=== PATIENT | female | born 1955 | race African-American/Black ===

== ENCOUNTER 2017-04-24 10:59 | Emergency (ER) | payer SELFPAY ==
[~2017-04-24] VITALS: Ht 160 cm; Wt 55.0 kg
[2017-04-24] MEDS ORDERED: BUPR100T6 PO (11:04)
[2017-04-24] MEDS ORDERED: RISP0.2514 PO (11:04)
[2017-04-24 13:08] LABS: BASOPHILS % 0.5 % (0.0-2.0); HEMATOCRIT. 38.6 % (36.0-48.0); HEMOGLOBIN. 13.2 g/dL (12.0-16.0); LYMPHOCYTES % 29.7 % (20.0-50.0); MEAN CORPUSCULAR HEMOGLOBIN 31.6 pg (28.0-32.0); MEAN CORPUSCULAR VOLUME 92.6 fL (81.0-99.0); MEAN PLATELET VOLUME 6.5 fl (7.4-10.4); MONOCYTES % 7.6 % (2.0-8.0); NEUTROPHILS % 59.2 % (40.0-76.0); PLATELET 240 x1000/uL (130-400); RED BLOOD CELL COUNT 4.17 mill/uL (4.2-5.4); RED CELL DISTRIBUTION WIDTH 15.6 % (11.6-14.6)
[2017-04-24 13:22] LABS: CARBON DIOXIDE 29 mEq/L (21-32); CHLORIDE 105 mEq/L (98-107); ETHANOL BLOOD < 10 mg/dL
[2017-04-24 13:37] LABS: CLARITY URINE CLEAR (CLEAR); COLOR URINE YELLOW (YELLOW); GLUCOSE URINE NEGATIVE (NEGATIVE); KETONES URINE NEGATIVE (NEGATIVE); LEUKOCYTE ESTERASE URINE TRACE (NEGATIVE); NITRITE URINE NEGATIVE (NEGATIVE); OCCULT BLOOD URINE NEGATIVE (NEGATIVE); PH URINE 5.5 (4.5-8.0); PROTEIN URINE NEGATIVE (NEGATIVE); SPECIFIC GRAVITY URINE 1.014 (1.005-1.030); UROBILINOGEN URINE 0.2 E.U./dL (0.2-1.0)
[2017-04-24 14:09] LABS: *AMPHETAMINES SCREEN URINE NEGATIVE (NEGATIVE); *BARBITURATES SCREEN URINE NEGATIVE (NEGATIVE); *BENZODIAZEPINES SCREEN URINE NEGATIVE (NEGATIVE); *COCAINE SCREEN URINE NEGATIVE (NEGATIVE); CANNABINOID URINE SCREEN NEGATIVE (NEGATIVE); METHADONE URINE SCREEN NEGATIVE (NEGATIVE); OPIATES URINE SCREEN NEGATIVE (NEGATIVE); PHENCYCLIDINE URINE SCREEN NEGATIVE (NEGATIVE)
[2017-04-25 14:08] VITALS: BP 114/66
== END 2017-04-25 17:02 | disposition home or self-care (01) ==
LOC: ER 12:05
DX: F20.9 Schizophrenia, unspecified (principal); R45.851 Suicidal ideations; Z88.8 Allergy status to other drugs, medicaments and biological substances
CPT/HCPCS: 36415; 80048; 80305; 80307; 80329; 81001; 85025; 99284; G0482; Z7610

== ENCOUNTER 2019-06-05 12:22 | Inpatient (IN) | payer MEDICAID ==
[~2019-06-05] VITALS: Ht 154.9 cm; Wt 37.4 kg
[~2019-06-05 12:22] MED LIST: BUPR100T6 PO; RISP0.2514 PO
[2019-06-05 13:58] LABS: BASOPHILS % 0.6 % (0.0-2.0); EOSINOPHILS % 3.1 % (0.0-5.0); HEMATOCRIT. 35.6 % (36.0-48.0); HEMOGLOBIN. 11.9 g/dL (12.0-16.0); LYMPHOCYTES % 15.1 % (20.0-50.0); MEAN CORPUSCULAR HEMOGLOBIN 31.2 pg (28.0-32.0); MEAN CORPUSCULAR VOLUME 93.2 fL (81.0-99.0); MEAN PLATELET VOLUME 6.4 fl (7.4-10.4); MONOCYTES % 5.6 % (2.0-8.0); NEUTROPHILS % 75.6 % (40.0-76.0); PLATELET 249 x1000/uL (130-400); RED BLOOD CELL COUNT 3.82 mill/uL (4.2-5.4); RED CELL DISTRIBUTION WIDTH 15.7 % (11.6-14.6)
[2019-06-05 14:03] LABS: CHLORIDE 110 mEq/L (98-107)
[2019-06-05 16:50] VITALS: BP 118/51
[2019-06-05 20:00] VITALS: BP 102/41
[2019-06-05 20:05] VITALS: BP 96/50
[2019-06-05 20:12] VITALS: BP 104/43
[2019-06-06] VITALS: BP 99/43
[2019-06-06 04:00] VITALS: BP 92/44
[2019-06-06 08:53] VITALS: BP 109/37
[2019-06-06] MEDS: ENOXAPARIN 30MG/0.3ML SYR SUBCUT SCH (09:00)
[2019-06-06] MEDS ORDERED: ENOXAPARIN 40MG/0.4ML SYR SUBCUT SCH (09:00)
[2019-06-06 12:48] VITALS: BP 101/31
[2019-06-06 16:00] VITALS: BP 147/67
[2019-06-06 16:37] VITALS: BP 103/27
[2019-06-06] MEDS ORDERED: FAMO20TA8 PO (20:38)
[2019-06-06] MEDS ORDERED: QUET50TA PO (20:38)
[2019-06-06] MEDS ORDERED: FAMOTIDINE(NEO) 1MG/ML SUSP PO SCH (20:45)
[2019-06-06] MEDS ORDERED: HALOPERIDOL LACTATE 5MG/ML VIAL IM SCH (21:45)
[2019-06-06] MEDS: FAMOTIDINE 20MG TABLET PO SCH (22:01)
[2019-06-06] MEDS: QUETIAPINE FUMARATE 25MG TABLET PO SCH (22:01)
[2019-06-07 03:54] VITALS: BP 127/83
[2019-06-07 08:00] VITALS: BP 112/58
[2019-06-07] MEDS: ENOXAPARIN 30MG/0.3ML SYR SUBCUT SCH ×2 (09:00→16:37)
[2019-06-07] MEDS: QUETIAPINE FUMARATE 25MG TABLET PO SCH ×2 (09:11→21:00)
[2019-06-07 12:00] VITALS: BP 110/48
[2019-06-07 16:00] VITALS: BP 129/51
[2019-06-07 18:13] LABS: BASOPHILS % 0.4 % (0.0-2.0); EOSINOPHILS % 4.7 % (0.0-5.0); HEMATOCRIT. 33.7 % (36.0-48.0); HEMOGLOBIN. 11.3 g/dL (12.0-16.0); LYMPHOCYTES % 34.4 % (20.0-50.0); MEAN CORPUSCULAR HEMOGLOBIN 31.1 pg (28.0-32.0); MEAN CORPUSCULAR VOLUME 92.3 fL (81.0-99.0); MEAN PLATELET VOLUME 6.4 fl (7.4-10.4); MONOCYTES % 11.6 % (2.0-8.0); NEUTROPHILS % 48.9 % (40.0-76.0); PLATELET 257 x1000/uL (130-400); RED BLOOD CELL COUNT 3.65 mill/uL (4.2-5.4); RED CELL DISTRIBUTION WIDTH 15.6 % (11.6-14.6)
[2019-06-07 18:28] LABS: CHLORIDE 108 mEq/L (98-107)
[2019-06-07 18:33] LABS: PHOSPHORUS 3.8 mg/dL (2.5-4.9)
[2019-06-07 20:39] VITALS: BP 135/49
[2019-06-07] MEDS: FAMOTIDINE 20MG TABLET PO SCH (21:00)
[2019-06-07] MEDS: HALOPERIDOL LACTATE 5MG/ML VIAL IM PRN (22:33)
[2019-06-08] VITALS: BP 133/52
[2019-06-08 04:00] VITALS: BP 115/47
[2019-06-08 08:00] VITALS: BP 125/62
[2019-06-08] MEDS: QUETIAPINE FUMARATE 25MG TABLET PO SCH ×2 (09:55→21:00)
[2019-06-08 12:00] VITALS: BP 111/57
[2019-06-08] MEDS: ASPIRIN 81MG TABLET PO SCH (12:00)
[2019-06-08 20:00] VITALS: BP 131/71
[2019-06-08] MEDS: FAMOTIDINE 20MG TABLET PO SCH (21:00)
[2019-06-08] MEDS: ATORVASTATIN CALCIUM 40MG TABLET PO SCH (21:00)
[2019-06-09] MEDS: HALOPERIDOL LACTATE 5MG/ML VIAL IM PRN (06:39)
[2019-06-09 08:04] VITALS: BP 119/60
[2019-06-09] MEDS: ASPIRIN 81MG TABLET PO SCH (09:00)
[2019-06-09] MEDS: ENOXAPARIN 30MG/0.3ML SYR SUBCUT SCH (09:00)
[2019-06-09] MEDS: QUETIAPINE FUMARATE 25MG TABLET PO SCH ×2 (10:54→21:47)
[2019-06-09 20:00] VITALS: BP 120/83
[2019-06-09] MEDS: ATORVASTATIN CALCIUM 40MG TABLET PO SCH ×2 (21:00→21:47)
[2019-06-09] MEDS: FAMOTIDINE 20MG TABLET PO SCH ×2 (21:00→21:47)
[2019-06-10] VITALS: BP 99/50
[2019-06-10 04:00] VITALS: BP 119/50
[2019-06-10 08:00] VITALS: BP 116/62
[2019-06-10] MEDS: ENOXAPARIN 30MG/0.3ML SYR SUBCUT SCH (09:00)
[2019-06-10] MEDS: ASPIRIN 81MG TABLET PO SCH (09:00)
[2019-06-10] MEDS: QUETIAPINE FUMARATE 25MG TABLET PO SCH ×2 (09:38→21:00)
[2019-06-10] MEDS: ATORVASTATIN CALCIUM 40MG TABLET PO SCH (21:00)
[2019-06-10] MEDS: FAMOTIDINE 20MG TABLET PO SCH (21:00)
[2019-06-11 08:00] VITALS: BP 111/44
[2019-06-11] MEDS: QUETIAPINE FUMARATE 25MG TABLET PO SCH (08:41)
[2019-06-11] MEDS: ENOXAPARIN 30MG/0.3ML SYR SUBCUT SCH (08:42)
[2019-06-11] MEDS: ASPIRIN 81MG TABLET PO SCH (08:42)
[2019-06-11 16:44] VITALS: BP 111/44
== END 2019-06-11 17:03 | disposition home or self-care (01) | DRG 46 ==
LOC: ER 14:36 → 6WST 14:39 → ENRESERV 16:03 → 6EST 06-09 11:32
PROVIDERS: ADMIT Family Medicine; ATTEND Family Medicine
DX: I65.21 Occlusion and stenosis of right carotid artery (principal); R64 Cachexia; F20.9 Schizophrenia, unspecified; R32 Unspecified urinary incontinence; E78.5 Hyperlipidemia, unspecified; I10 Essential (primary) hypertension; Z91.14 Patient's other noncompliance with medication regimen; Z88.8 Allergy status to other drugs, medicaments and biological substances; G90.8 Other disorders of autonomic nervous system
CPT/HCPCS: 36415; 71045; 80048; 80061; 83735; 83880; 84100; 84484; 93005; 93880; 99285; J1630; J1650

== ENCOUNTER 2019-08-12 13:02 | Emergency (ER) | payer MEDICAID ==
[~2019-08-12] VITALS: Ht 157.5 cm; Wt 45.0 kg
[~2019-08-12 13:02] MED LIST changes: +FAMO20TA8 PO; +QUET50TA PO
[2019-08-12] MEDS ORDERED: BACITRACIN ZINC OINT UDPKT TOP ONE (15:00)
[2019-08-12] MEDS ORDERED: ACETAMINOPHEN 325MG TABLET PO ONE (15:00)
[2019-08-12] MEDS ORDERED: LIDOCAINE HCL/PF 1% 10 MG/ML 5ML VIAL IJ ONE (15:00)
[2019-08-12 15:31] LABS: CHLORIDE 108 mEq/L (98-107); HEMATOCRIT. 35.5 % (36.0-48.0); MEAN CORPUSCULAR VOLUME 94.4 fL (81.0-99.0); PLATELET 248 x1000/uL (130-400); RED BLOOD CELL COUNT 3.76 mill/uL (4.2-5.4); RED CELL DISTRIBUTION WIDTH 15.5 % (11.6-14.6)
[2019-08-12 15:37] LABS: ETHANOL BLOOD < 10 mg/dL
[2019-08-12 16:22] LABS: PLATELET ESTIMATE NORMAL
[2019-08-12 18:21] LABS: CLARITY URINE CLEAR (CLEAR); COLOR URINE YELLOW (YELLOW); KETONES URINE TRACE (NEGATIVE); LEUKOCYTE ESTERASE URINE NEGATIVE (NEGATIVE); NITRITE URINE NEGATIVE (NEGATIVE); OCCULT BLOOD URINE NEGATIVE (NEGATIVE); PH URINE 6.5 (4.5-8.0); PROTEIN URINE NEGATIVE (NEGATIVE); SPECIFIC GRAVITY URINE 1.015 (1.005-1.030)
[2019-08-12 18:36] LABS: *BARBITURATES SCREEN URINE NEGATIVE (NEGATIVE)
[2019-08-12 18:37] LABS: *AMPHETAMINES SCREEN URINE NEGATIVE (NEGATIVE); *BENZODIAZEPINES SCREEN URINE NEGATIVE (NEGATIVE); *COCAINE SCREEN URINE NEGATIVE (NEGATIVE); METHADONE URINE SCREEN NEGATIVE (NEGATIVE); OPIATES URINE SCREEN NEGATIVE (NEGATIVE)
[2019-08-12 18:38] LABS: CANNABINOID URINE SCREEN NEGATIVE (NEGATIVE); PHENCYCLIDINE URINE SCREEN NEGATIVE (NEGATIVE)
[2019-08-14 13:25] VITALS: BP 111/67
== END 2019-08-14 13:33 | disposition home or self-care (01) ==
LOC: ER 13:02
DX: R45.851 Suicidal ideations (principal); F20.9 Schizophrenia, unspecified; F32.9 Major depressive disorder, single episode, unspecified; Z59.0 Homelessness; Z88.9 Allergy status to unspecified drugs, medicaments and biological substances; Z79.899 Other long term (current) drug therapy
CPT/HCPCS: 36415; 80048; 80305; 80307; 80320; 80329; 81003; 99284; G0480

== ENCOUNTER 2020-08-09 15:07 | Inpatient (IN) | payer MEDICAID, OTHER ==
[~2020-08-09] VITALS: Ht 165.1 cm; Wt 52.4 kg
[2020-08-09] MEDS ORDERED: LABETALOL 5MG/ML SYR 20 MG/4 ML SYRINGE IV ONE (15:45)
[2020-08-09 18:12] LABS: HEMATOCRIT. 40.3 % (36.0-48.0); HEMOGLOBIN. 13.6 g/dL (12.0-16.0); MEAN CORPUSCULAR HEMOGLOBIN 31.4 pg (28.0-32.0); MEAN CORPUSCULAR VOLUME 92.9 fL (81.0-99.0); MEAN PLATELET VOLUME 6.5 fl (7.4-10.4); PLATELET 326 x1000/uL (130-400); RED BLOOD CELL COUNT 4.34 mill/uL (4.2-5.4); RED CELL DISTRIBUTION WIDTH 14.9 % (11.6-14.6)
[2020-08-09 18:31] LABS: CHLORIDE 108 mEq/L (98-107)
[2020-08-09 18:35] LABS: INR 1.1; PARTIAL THROMBOPLASTIN TIME 32.1 sec (23.4-31.0); PROTHROMBIN TIME 11.4 sec (9.6-11.0)
[2020-08-09 18:38] LABS: LDL CHOLESTEROL 166 mg/dL (5-100)
[2020-08-09 18:49] LABS: PLATELET ESTIMATE NORMAL
[2020-08-09 23:36] VITALS: BP_SYST 137; BP_SYST 163; BP_DIAS 63; BP_DIAS 79
[2020-08-10] VITALS (14 sets, daily range): BP systolic 98–144; BP diastolic 37–109
[2020-08-10] MEDS ORDERED: NITROGLYCERIN 0.4MG TABLET SL SL PRN (02:15)
[2020-08-10 07:09] LABS: CHLORIDE 106 mEq/L (98-107)
[2020-08-10 07:47] LABS: BASOPHILS % 0.6 % (0.0-2.0); EOSINOPHILS % 3.8 % (0.0-5.0); HEMATOCRIT. 36.3 % (36.0-48.0); HEMOGLOBIN. 12.4 g/dL (12.0-16.0); LYMPHOCYTES % 20.2 % (20.0-50.0); MEAN CORPUSCULAR VOLUME 93.5 fL (81.0-99.0); MEAN PLATELET VOLUME 6.6 fl (7.4-10.4); MONOCYTES % 9.3 % (2.0-8.0); NEUTROPHILS % 66.1 % (40.0-76.0); PLATELET 290 x1000/uL (130-400); RED BLOOD CELL COUNT 3.88 mill/uL (4.2-5.4); RED CELL DISTRIBUTION WIDTH 14.4 % (11.6-14.6)
[2020-08-10] MEDS: ENOXAPARIN 40MG/0.4ML SYR SUBCUT SCH ×2 (08:24→08:33)
[2020-08-10] MEDS: METOPROLOL TARTRATE 25MG TABLET PO SCH ×2 (08:27→21:00)
[2020-08-10] MEDS ORDERED: ASPIRIN 81MG TABLET PO SCH (09:00)
[2020-08-10] MEDS ORDERED: SODIUM CHLORIDE 0.9% 1,000 ML IV SCH (15:45)
[2020-08-10 19:35] LABS: CLARITY URINE CLEAR (CLEAR); COLOR URINE YELLOW (YELLOW); KETONES URINE NEGATIVE (NEGATIVE); LEUKOCYTE ESTERASE URINE NEGATIVE (NEGATIVE); NITRITE URINE NEGATIVE (NEGATIVE); OCCULT BLOOD URINE NEGATIVE (NEGATIVE); PROTEIN URINE NEGATIVE (NEGATIVE); UROBILINOGEN URINE 0.2 E.U./dL (0.2-1.0)
[2020-08-10 19:50] LABS: *AMPHETAMINES SCREEN URINE NEGATIVE (NEGATIVE); *BARBITURATES SCREEN URINE NEGATIVE (NEGATIVE); *COCAINE SCREEN URINE NEGATIVE (NEGATIVE); METHADONE URINE SCREEN NEGATIVE (NEGATIVE)
[2020-08-10 19:51] LABS: CANNABINOID URINE SCREEN NEGATIVE (NEGATIVE); OPIATES URINE SCREEN NEGATIVE (NEGATIVE); PHENCYCLIDINE URINE SCREEN NEGATIVE (NEGATIVE)
[2020-08-10 19:53] LABS: *BENZODIAZEPINES SCREEN URINE NEGATIVE (NEGATIVE)
[2020-08-10] MEDS ORDERED: ATORVASTATIN CALCIUM 20MG TABLET PO SCH (21:00)
[2020-08-10] MEDS ORDERED: BENZ1TAB7 PO (22:25)
[2020-08-10] MEDS ORDERED: OLAN5TAB26 PO (22:25)
[2020-08-10] MEDS ORDERED: BENZTROPINE MESYLATE 1MG TABLET PO SCH (22:30)
[2020-08-10] MEDS ORDERED: OLANZAPINE 5MG TABLET PO SCH (22:30)
[2020-08-11] VITALS (7 sets, daily range): BP systolic 98–110; BP diastolic 47–72
[2020-08-11] MEDS: ENOXAPARIN 40MG/0.4ML SYR SUBCUT SCH (09:00)
[2020-08-11] MEDS ORDERED: ASPIRIN 81MG EC TABLET PO SCH (09:00)
[2020-08-11] MEDS: METOPROLOL TARTRATE 25MG TABLET PO SCH (09:00)
[2020-08-11] MEDS ORDERED: METO25TA6 PO (12:02)
[2020-08-11] MEDS ORDERED: ASPI-1158 PO (12:02)
[2020-08-11] MEDS ORDERED: ATOR20TA PO (12:02)
== END 2020-08-11 15:20 | disposition home or self-care (01) | DRG 48 ==
LOC: ER 15:07 → 3WST 19:12 → EDBEDREQ 19:21 → ENRESERV 22:35
PROVIDERS: ADMIT Internal Medicine; ATTEND Internal Medicine
DX: G90.8 Other disorders of autonomic nervous system (principal); E87.8 Other disorders of electrolyte and fluid balance, not elsewhere classified; F20.9 Schizophrenia, unspecified; E78.5 Hyperlipidemia, unspecified; R07.89 Other chest pain; I10 Essential (primary) hypertension; F17.210 Nicotine dependence, cigarettes, uncomplicated; Z79.899 Other long term (current) drug therapy; Z79.82 Long term (current) use of aspirin; Z88.8 Allergy status to other drugs, medicaments and biological substances
CPT/HCPCS: 36415; 71045; 80053; 80305; 81003; 83721; 83880; 84443; 84484; 85025; 93005; 93306; 99285; J1650; J7030